=== PATIENT | male | born 1945 | race Caucasian/White ===

== ENCOUNTER → 2017-02-12 | Outpatient (CLI) | payer OTHER | LOC: KOH-I 13:17 | DX: M25.532 Pain in left wrist (principal); R93.7 Abnormal findings on diagnostic imaging of other parts of musculoskeletal system | CPT/HCPCS: 73110 ==

== ENCOUNTER → 2017-03-10 | Outpatient (CLI) | payer OTHER, BC | LOC: KOH-I 03-05 08:00 | DX: S62.102D Fracture of unspecified carpal bone, left wrist, subsequent encounter for fracture with routine healing (principal); M21.932 Unspecified acquired deformity of left forearm | CPT/HCPCS: 73200 ==

== ENCOUNTER → 2017-03-19 | Outpatient (CLI) | payer OTHER, BC | LOC: KOH-I 10:22 | DX: S60.851A Superficial foreign body of right wrist, initial encounter (principal); M24.031 Loose body in right wrist; S62.171A Displaced fracture of trapezium [larger multangular], right wrist, initial encounter for closed fracture; S62.141A Displaced fracture of body of hamate [unciform] bone, right wrist, initial encounter for closed fracture | CPT/HCPCS: 73200 ==

== ENCOUNTER 2021-08-12 12:55 | Observation (INO) | payer MEDICARE ==
[~2021-08-12] VITALS: Ht 172.7 cm; Wt 78.0 kg
[~2021-08-12 12:55] MED LIST: ASPIRIN 325MG325 MG PO; COREG 12.5MG12.5 MG PO; FLOMAX0.4 MG PO; GLUCOPHAGE1000 MG PO; HYDRALAZINE HCL50 MG PO; HYDROCHLOROTHIA25 MG PO; KLONOPIN TAB 00.5 MG PO; NAPROSYN500 MG PO; NORVASC 5 MG TAB5 MG PO; NOVOLIN N100 UNIT/1 SC; PAXIL CR25 MG PO; PAXIL40 MG PO; PROSCAR5 MG PO; SEROQUEL100 MG PO; ZOCOR 40 MG TAB40 MG PO
[2021-08-12 14:20] LABS: HEMOGLOBIN 12.6 gm/dl (14.0-17.5); RED BLOOD COUNT 3.89 M/UL (4.20-5.50); WHITE BLOOD COUNT 9.8 K/UL (4.5-11.0)
[2021-08-12 14:45] LABS: BUN/CREATININE RATIO 8 (0-10)
[2021-08-12] MEDS ORDERED: FARXIGA10 MG PO (19:53)
[2021-08-12] MEDS ORDERED: VALIUM 5 MG TAB5 MG PO (19:53)
[2021-08-12] MEDS ORDERED: LEVOTHYROXINE50 MCG PO (19:53)
[2021-08-12] MEDS ORDERED: COZAAR 50MG TAB50 MG PO (19:53)
[2021-08-12] MEDS ORDERED: SIMVASTATIN20 MG PO (19:54)
[2021-08-12] MEDS ORDERED: METFORMIN HCL1000 MG PO (19:54)
[2021-08-12] MEDS ORDERED: QUETIAPINE FUM100 MG PO (19:54)
[2021-08-12] MEDS ORDERED: PAROXETINE HCL30 MG PO (19:54)
[2021-08-12] MEDS ORDERED: PIOGLITAZONE HC30 MG PO (19:55)
[2021-08-13 02:15] LABS: HEMOGLOBIN 11.6 gm/dl (14.0-17.5); RED BLOOD COUNT 3.57 M/UL (4.20-5.50); WHITE BLOOD COUNT 8.1 K/UL (4.5-11.0)
[2021-08-13 02:54] LABS: BUN/CREATININE RATIO 14 (0-10)
[2021-08-14 06:24] LABS: HEMOGLOBIN 12.6 gm/dl (14.0-17.5); RED BLOOD COUNT 3.91 M/UL (4.20-5.50)
[2021-08-14 07:08] LABS: BUN/CREATININE RATIO 15 (0-10)
[2021-08-14] MEDS ORDERED: MECLIZINE HCL25 MG PO (18:25)
[2021-08-14] MEDS ORDERED: FLOMAX 0.4 MG0.4 MG PO (18:25)
[2021-08-14] MEDS ORDERED: ASPIRIN EC81 MG PO (19:53)
[2021-08-15 11:14] LABS: CREATININE, URINE 22.7 mg/dL (Not Estab.)
== END 2021-08-14 20:15 | disposition home or self-care (01) ==
LOC: ER1 12:55 → CDU 18:37 → M/S 20:35
PROVIDERS: Student in an Organized Health Care Education/Training Program; ADMIT Internal Medicine
DX: R41.82 Altered mental status, unspecified (principal); N17.9 Acute kidney failure, unspecified; N40.0 Benign prostatic hyperplasia without lower urinary tract symptoms; R06.89 Other abnormalities of breathing; E11.9 Type 2 diabetes mellitus without complications; E03.9 Hypothyroidism, unspecified; I10 Essential (primary) hypertension; E78.5 Hyperlipidemia, unspecified; F41.9 Anxiety disorder, unspecified; F32.A Depression, unspecified; G93.89 Other specified disorders of brain; R82.5 Elevated urine levels of drugs, medicaments and biological substances; R79.89 Other specified abnormal findings of blood chemistry; Z20.822 Contact with and (suspected) exposure to COVID-19; Z90.49 Acquired absence of other specified parts of digestive tract; Z79.84 Long term (current) use of oral hypoglycemic drugs; Z79.899 Other long term (current) drug therapy
CPT/HCPCS: 36415; 36600; 70450; 70551; 71045; 80048; 80053; 80307; 81001; 82043; 82550; 82553; 82570; 82803; 82962; 83874; 84156; 84439; 84443; 84484; 85025; 85027; 93005; 93880; 96372; 96374; 96375; 96376; 97110; 97110-GP-CQ; 97116-GP-CQ; 97161; 97166; 99285; G0378; J0360; J1644; U0002

== ENCOUNTER 2022-02-25 19:27 | Emergency (ER) | payer MEDICARE ==
[~2022-02-25 19:27] MED LIST changes: +ASPIRIN EC81 MG PO; +COZAAR 50MG TAB50 MG PO; +FARXIGA10 MG PO; +FLOMAX 0.4 MG0.4 MG PO; +LEVOTHYROXINE50 MCG PO; +MECLIZINE HCL25 MG PO; +METFORMIN HCL1000 MG PO; +PAROXETINE HCL30 MG PO; +PIOGLITAZONE HC30 MG PO; +QUETIAPINE FUM100 MG PO; +SIMVASTATIN20 MG PO; +VALIUM 5 MG TAB5 MG PO
[2022-02-25 20:19] LABS: HEMOGLOBIN 12.6 gm/dl (14.0-17.5); RED BLOOD COUNT 4.05 M/UL (4.20-5.50); WHITE BLOOD COUNT 6.9 K/UL (4.5-11.0)
[2022-02-25 20:40] LABS: BUN/CREATININE RATIO 12 (0-10)
== END 2022-02-25 22:19 | disposition home or self-care (01) ==
LOC: ER1 19:27
PROVIDERS: Physician Assistant; Student in an Organized Health Care Education/Training Program
DX: R41.0 Disorientation, unspecified (principal); E11.9 Type 2 diabetes mellitus without complications; I10 Essential (primary) hypertension
CPT/HCPCS: 70450; 71045; 80053; 80307; 81001; 82550; 82553; 83605; 84484; 85025; 93005; 99285; G0480

== ENCOUNTER 2022-05-26 09:54 | Emergency (ER) | payer MEDICARE ==
[2022-05-26] MEDS ORDERED: CEPHALEXIN500 M1 PO (12:34)
== END 2022-05-26 13:00 | disposition home or self-care (01) ==
LOC: ER1 09:54
DX: S61.211A Laceration without foreign body of left index finger without damage to nail, initial encounter (principal); W45.8XXA Other foreign body or object entering through skin, initial encounter; Y92.009 Unspecified place in unspecified non-institutional (private) residence as the place of occurrence of the external cause
CPT/HCPCS: 12001; 73140; 90471; 90715; 99283